=== PATIENT | female | born 1960 | race Caucasian/White ===

== ENCOUNTER 2016-09-04 10:21 | Emergency (ER) | payer MEDICARE, OTHER ==
[~2016-09-04] VITALS: Ht 167.6 cm; Wt 70.0 kg
[2016-09-04 10:23] VITALS: Ht 167.6 cm; Wt 70.0 kg
[2016-09-04] MEDS ORDERED: SOD CHLORIDE 0.9% 1,000 ML IV STA (10:37)
[2016-09-04] MEDS ORDERED: morphine 4 MG/ML VIAL IV STA (10:37)
[2016-09-04] MEDS ORDERED: ONDANSETRON 4 MG INJ IV STA (10:37)
[2016-09-04] MEDS ORDERED: KETOROLAC 30 MG INJ IV STA (11:00)
[2016-09-04 11:09] LABS: ADD SCAN DIFF NO
[2016-09-04 11:12] LABS: BASOPHIL # 0.1 10^3/ul (0.0-0.1); BASOPHILS % 0.4 % (0.0-2.0); EOSINOPHILS # 0.1 10^3/ul (0.0-0.5); EOSINOPHILS % 1.1 % (0.0-7.0); HEMATOCRIT 40.3 % (37.0-47.0); HEMOGLOBIN 13.5 g/dl (12.0-16.0); LYMPHOCYTES # 1.8 10^3/ul (0.8-2.9); LYMPHOCYTES % 14.3 % (15.0-51.0); MEAN CORPUSCULAR HEMOGLOBIN 29.7 pg (29.0-33.0); MEAN CORPUSCULAR HGB CONC 33.5 g/dl (32.0-37.0); MEAN CORPUSCULAR VOLUME 88.6 fl (82.0-101.0); MEAN PLATELET VOLUME 11.1 fl (7.4-10.4); MONOCYTE # 0.7 10^3/ul (0.3-0.9); MONOCYTES % 5.9 % (0.0-11.0); NEUTROPHIL # 9.5 10^3/ul (1.6-7.5); NEUTROPHILS % 77.6 % (39.0-77.0); PLATELET COUNT 210 10^3/UL (140-415); RED BLOOD COUNT 4.55 10^6/ul (4.20-5.40); WHITE BLOOD COUNT 12.3 10^3/ul (4.8-10.8)
[2016-09-04 11:22] LABS: ADD UMIC YES; UR ASCORBIC ACID 20 mg/dL (NEGATIVE); UR BILIRUBIN (Dip) NEGATIVE (NEGATIVE); UR BLOOD (Dip) 3+ mg/dL (NEGATIVE); UR CLARITY CLOUDY (CLEAR); UR COLOR RED (YELLOW); UR GLUCOSE (Dip) 1+ mg/dL (NEGATIVE); UR KETONES (Dip) NEGATIVE (NEGATIVE); UR LEUKOCYTE ESTERASE (Dip) NEGATIVE Leu/ul (NEGATIVE); UR NITRITE (Dip) POSITIVE (NEGATIVE); UR RBC > 182 /HPF (0-5); UR SPECIFIC GRAVITY (Dip) 1.025 (1.003-1.030); UR TOTAL PROTEIN (Dip) 2+ mg/dl (NEGATIVE); UR UROBILINOGEN (Dip) NEGATIVE (NEGATIVE); UR WBC CLUMPS MANY /HPF (NONE SEEN)
[2016-09-04 11:27] LABS: ALBUMIN 4.5 g/dl (3.3-4.9); ALBUMIN/GLOBULIN RATIO 1.6; BILIRUBIN,INDIRECT 0.4 mg/dl (0-1.1); BILIRUBIN,TOTAL 0.4 mg/dl (0.2-1.3); CREATININE 0.66 mg/dl (0.44-1.00); POTASSIUM 3.8 mmol/L (3.5-5.1); TOTAL PROTEIN 7.3 g/dl (6.1-8.1)
[2016-09-04] MEDS ORDERED: CIPROFLOXACIN 500 MG TAB PO ONE (12:30)
--- NOTE | 2016-09-04 12:32 | RADRPT ---
PROCEDURE: US Pelvis. CLINICAL INDICATION: Pelvic pain TECHNIQUE: Multiple sonographic images of the pelvis were obtained utilizing a transabdominal and endovaginal technique. The images were reviewed on a PACS workstation. COMPARISON: None available. FINDINGS: The uterus is enlarged, heterogeneous and measures 12.4 x 8.6 x 9.6 cm. There is a large fundal, carrillo metrial fibroid measuring 6.0 x 6.1 x 6.9 cm. The endometrial echo complex is prominent and measure s 13.6 mm. There is no evidence for free fluid. The right ovary has a normal echotexture and measure s 3.6 x 1.5 x 2.0 cm. The left ovary has a normal echotexture and measures 4.7 x 2.3 x 2.8 cm. No adnexal masses are noted. IMPRESSION: 1. 6.0 x 6.1 x 6.9 cm fibroid in the fundus. RPTAT: [facility] Physician Max Date Time Electronically viewed and signed by Physician Max on 09/04/2016 12:32 /
--- NOTE | 2016-09-04 12:57 | RADRPT ---
PROCEDURE: CT Abdomen and Pelvis without contrast. CLINICAL INDICATION: Abdominal pain. TECHNIQUE: CT scan of the abdomen and pelvis without contrast was performed on a multidetector hig h-resolution CT scanner. The patient was scanned without intravenous contrast. Coronal and sagittal reformatted images were obtained from the axial source images. Images were reviewed on a high-resol [employer] PACS workstation. One or more of the following dose reduction techniques were used: Automated exposure control, adjustment of the mA and/or kV according to patient size, use of iterative recon struction technique. The total exam CTDI equals 15.55 mGy and the total exam DLP equals 974.67 mGy- cm. COMPARISON: Correlation with ultrasound from the same day. FINDINGS: CT abdomen: The lung bases are clear. The heart size is normal, without pericardial thickening or effusion. Th ere is a 2.5 x 1.3 x 1.1 cm region of irregular soft tissue density within the paracardial fat pad n ear the inferolateral aspect of the cardiac apex (image 28, series 3). There is pectus excavatum wit h a Rosemary index of 3.0. The liver is enlarged measuring 22 cm but normal in density. There is a 7 mm hypodensity in the rig ht hepatic lobe, too small to characterize but likely representing a cyst. Otherwise, there is no e vidence of suspicious focal mass or intrahepatic biliary dilatation. There is trace perihepatic hyp odensity at the anterior surface of the right hepatic lobe (image 31, series 3). The spleen is norm al in size and homogeneous in density. The stomach is grossly unremarkable. The pancreas as visual ized is normal. The gallbladder and biliary tree are unremarkable and there is no evidence for bili barby dilatation. The adrenal glands are symmetric and normal. The kidneys are symmetrically unremar kable as well. No renal calculus or obstructive uropathy or mass lesion is seen. The aorta is of normal caliber. There is no retroperitoneal lymphadenopathy. The ernie hepatis reg ion is clear. The small bowel and mesentery, as visualized, are unremarkable. There is a small fat containing supraumbilical hernia. CT pelvis: The small bowel loops situated within the pelvis are unremarkable. The uterus is enlarged measuring 11.0 x 8.7 x 9.8 cm. The pelvic sidewalls and inguinal regions are clear. The sigmoid colon and r ectum are unremarkable. The appendix is not clearly seen. No inflammatory changes are present in th e right lower quadrant to suggest appendicitis. No mass, lymphadenopathy, or free fluid is seen. No acute inflammation is seen. There is a small fat-containing left inguinal hernia. The surrounding osseous structures are unremarkable. No osteolytic or osteoblastic lesion is detec harsha. IMPRESSION: 1. No abdominal or pelvic acute inflammatory process. 2. Hepatomegaly with trace nonspecific perihepatic fluid. Small 7 mm right hepatic lobe hypodense l esion, too small to characterize but likely representing a cyst 3. Small supraumbilical fat-containing hernia. 4. Small left inguinal fat-containing hernia. 5. Enlarged uterus, may be secondary to fibroids or adenomyosis. If there is further concern, cons ider MRI pelvis with contrast. 6. Pectus excavatum with a Rosemary index of 3.0. 7. 2.5 x 1.3 x 1.1 cm region of irregular soft tissue density within the paracardial fat near the c ardiac apex, of uncertain significance. May represent focal inflammation or edema. RPTAT: BB .Wilner Ramirez MD, Date Time Electronically viewed and signed by .Wilner Ramirez MD, on 09/04/2016 12:57 .A/
[2016-09-04] MEDS ORDERED: BENA10TA48 PO (13:00)
[2016-09-04] MEDS ORDERED: ZOLP10TA5 PO (13:02)
[2016-09-04] MEDS ORDERED: AMLO5TAB4 PO (13:02)
[2016-09-04] MEDS ORDERED: PANT40TA4 PO (13:02)
[2016-09-04] MEDS ORDERED: ATOR20TA38 PO (13:03)
[2016-09-04] MEDS ORDERED: ESOM40CA PO (13:03)
[2016-09-04] MEDS ORDERED: CIPR500T4 PO (13:27)
[2016-09-04] MEDS ORDERED: ORTNOV PO (13:27)
[2016-09-04] MEDS ORDERED: HYDR-902 PO (13:27)
[2016-09-04 13:44] VITALS: BP 122/65; PULSE 62; RESP 18
--- NOTE | 2016-09-04 14:00 | ERD ---
ER Documentation Chief Complaint Date/Time DATE: 09/04/16 TIME: 14:00 Chief Complaint RT GROIN PAIN X 2 DAYS HPI Patient is a 55-year-old female with no medical problems who presents with abdominal pain. The patient has right lower quadrant abdominal pain for the past 2-3 days. Advil helps. The patient has had vaginal bleeding for the past 3 days and is using multiple pads. She feels pain radiating to her back. She was brought in by ambulance. She tried Advil for pain. Upon review of old medical records this is the patient's first visit to the emergency department. ROS All systems reviewed and are negative except as per history of present illness. Medications Home Meds Active Scripts Hydrocodone/Acetaminophen (Palmer 10-325 Tablet) 1 Each Tablet, 1 TAB PO Q6H Y for PAIN, #7 TAB Prov:CALLY HARMAN MD 09/04/16 Ciprofloxacin Hcl* (Ciprofloxacin Hcl*) 500 Mg Tablet, 500 MG PO BID, #14 TAB Prov:CALLY HARMAN MD 09/04/16 Norethindrone-Ethinyl Estradiol (Ortho-Novum ()) 0.035-1 Mg Tablet, 1 TAB PO DAILY for 28 Days, TAB Prov:CALLY HARMAN MD 09/04/16 Reported Medications Esomeprazole Mag Trihydrate (Nexium) 40 Mg Capsule.dr, 40 MG PO AC BREAKFAST, # 30 CAP 09/04/16 Atorvastatin Calcium* (Atorvastatin Calcium*) 20 Mg Tablet, 20 MG PO QHS, #30 TAB 09/04/16 Pantoprazole* (Pantoprazole*) 40 Mg Tablet.dr, 40 MG PO AC BREAKFAST, TAB 09/04/16 Zolpidem Tartrate* (Zolpidem Tartrate*) 10 Mg Tablet, 10 MG PO QHS Y for INSOMNIA, #30 TAB 09/04/16 Amlodipine Besylate* (Norvasc*) 5 Mg Tablet, 5 MG PO DAILY, TAB 09/04/16 Benazepril Hcl* (Benazepril Hcl*) 10 Mg Tablet, 10 MG PO DAILY, #30 TAB 09/04/16 Discontinued Reported Medications Pantoprazole* (Pantoprazole*) 40 Mg Tablet., 40 MG PO AC BREAKFAST, TAB 09/04/16 Allergies Allergies: Coded Allergies: No Known Allergy (Unverified , 09/04/16) PMhx/Soc Medical and Surgical Hx: pt denies Medical Hx, pt denies Surgical Hx Hx Alcohol Use: No Hx Substance Use: No Hx Tobacco Use: No Smoking Status: Never smoker FmHx Positive for hypertension Physical Exam Vitals Vital Signs Date Time Temp Pulse Resp B/P Pulse Ox O2 Delivery O2 Flow Rate FiO2 09/04/16 13:44 62 18 122/65 99 09/04/16 10:57 67 18 148/95 99 09/04/16 10:23 98.5 77 18 180/90 99 Physical Exam Const: No acute distress Head: Atraumatic Eyes: Normal Conjunctiva ENT: Normal External Ears, Nose and Mouth. Neck: Full range of motion..~ No meningismus. Resp: Clear to auscultation bilaterally Cardio: Regular rate and rhythm, no murmurs Abd: Right lower quadrant tenderness to palpation without rebound or guarding Skin: No petechiae or rashes Back: No midline or flank tenderness Ext: No cyanosis, or edema Neur: Awake and alert Psych: Normal Mood and Affect Result Diagram: 09/04/16 1055 09/04/16 1055 Results 24 hrs Laboratory Tests Test 09/04/16 10:14 09/04/16 10:55 Urine Color RED Urine Clarity CLOUDY Urine pH 6.0 Urine Specific [place] 1.025 Urine Ketones NEGATIVEmg/dL Urine Nitrite POSITIVEmg/dL Urine Bilirubin NEGATIVEmg/dL Urine Urobilinogen NEGATIVEmg/dL Urine Leukocyte Esterase NEGATIVELeu/ul Urine Microscopic RBC > 182/HPF Urine Microscopic WBC > 182/HPF Urine Hemoglobin 3+mg/dL Urine Glucose 1+mg/dL Urine Total Protein 2+mg/dl White Blood Count 12.310^3/ul Red Blood Count 4.5510^6/ul Hemoglobin 13.5g/dl Hematocrit 40.3% Mean Corpuscular Volume 88.6fl Mean Corpuscular Hemoglobin 29.7pg Mean Corpuscular Hemoglobin Concent 33.5g/dl Red Cell Distribution Width 13.0% Platelet Count 01202^3/UL Mean Platelet Volume 11.1fl Neutrophils % 77.6% Lymphocytes % 14.3% Monocytes % 5.9% Eosinophils % 1.1% Basophils % 0.4% Nucleated Red Blood Cells % 0.0/100WBC Neutrophils # 9.510^3/ul Lymphocytes # 1.810^3/ul Monocytes # 0.710^3/ul Eosinophils # 0.110^3/ul Basophils # 0.110^3/ul Nucleated Red Blood Cells # 0.010^3/ul Sodium Level 141mmol/L Potassium Level 3.8mmol/L Chloride Level 105mmol/L Carbon Dioxide Level 26mmol/L Anion Gap 14 Blood Urea Nitrogen 13mg/dl Creatinine 0.66mg/dl Glucose Level 116mg/dl Calcium Level 9.0mg/dl Total Bilirubin 0.4mg/dl Direct Bilirubin 0.00mg/dl Indirect Bilirubin 0.4mg/dl Aspartate Amino Transf (AST/SGOT) 18IU/L Alanine Aminotransferase (ALT/SGPT) 29IU/L Alkaline Phosphatase 93IU/L Total Protein 7.3g/dl Albumin 4.5g/dl Globulin 2.80g/dl Albumin/Globulin Ratio 1.60 Lipase 34U/L Current Medications Medications (Trade) Dose Ordered Sig/Michelle Route PRN Reason Start Time Stop Time Status Last Admin Dose Admin Sodium Chloride (NS) 1,000 ml @ 1,000 mls/hr Q1H STAT IV 09/04/16 10:37 09/04/16 11:36 DC 09/04/16 11:07 Morphine Sulfate (morphine) 4 mg ONCE STAT IV 09/04/16 10:37 09/04/16 10:39 DC Ondansetron HCl (Zofran Inj) 4 mg ONCE STAT IV 09/04/16 10:37 09/04/16 10:39 DC Ketorolac Tromethamine (Toradol) 30 mg ONCE STAT IV 09/04/16 11:00 09/04/16 11:01 DC 09/04/16 11:06 Ciprofloxacin (Cipro) 500 mg ONCE ONCE PO 09/04/16 12:30 09/04/16 12:31 DC 09/04/16 13:00 Procedures/MDM CT abdomen pelvis shows fibroid but no other acute normality per radiology. Ultrasound the pelvis shows fibroid but no ovarian torsion per radiology. Smoking Cessation Therapy: Pt. was lectured for greater than 3 minutes on the health risks of continued smoking and the benefits of cessation. Patient is a 55-year-old female who presents with right lower quadrant abdominal pain and dysfunctional uterine bleeding. She was given morphine and Zofran. She was given 1 L of fluid. She is found to have acute cystitis and dysfunctional uterine bleeding. She has a large fibroid and may require hysterectomy but does not require admission or hysterectomy at this time. The patient will be discharged and can return for any worsening symptoms. I doubt appendicitis, cholecystitis, pancreatitis, or bowel obstruction. She was given copies of her laboratory studies and imaging test will be discharged in stable condition. Departure Diagnosis: Primary Impression: Cystitis Additional Impressions: Dysfunctional uterine bleeding Fibroid Uterine leiomyoma location: unspecified location Qualified Code: D25.9 - Uterine leiomyoma, unspecified location Abdominal pain Abdominal location: right lower quadrant Qualified Code: R10.31 - Right lower quadrant abdominal pain Condition: Fair Patient Instructions: Abdominal Pain, Cystitis, Dysfunctional Uterine Bleeding Referrals: Dr. Brock Additional Instructions: Call your primary care doctor TOMORROW for an appointment during the next 1-2 days.See the doctor sooner or return here if your condition worsens before your appointment time. CALLY HARMAN MD Sep 04, 2016 14:00
== END 2016-09-04 13:51 | disposition home or self-care (01) ==
LOC: E/R 10:21
DX: N30.90 Cystitis, unspecified without hematuria (principal); N93.8 Other specified abnormal uterine and vaginal bleeding; D25.9 Leiomyoma of uterus, unspecified
CPT/HCPCS: 74176; 76856; 80053; 81001; 83690; 85025; J1885; J7030; 36415; 96361; 96374